=== PATIENT | male | born 1980 | race Two or more races ===

== ENCOUNTER 2025-06-08 18:56 | Emergency (ER) | payer OTHER ==
[~2025-06-08] VITALS: Ht 172.7 cm; Wt 113.4 kg
[~2025-06-08 18:56] MED LIST: METF-440 PO
[2025-06-08 19:00] VITALS: O2SAT 98
[2025-06-08] MEDS: MORPHINE SULFATE 4 MG/1 ML DISP.SYRIN IV ONE (20:20)
[2025-06-08] MEDS: IV NORMAL SALINE 1000 ML BAG IV ONE (20:20)
== END 2025-06-08 19:25 | disposition left against medical advice (07) ==
LOC: ER 19:00
DX: R10.9 Unspecified abdominal pain (principal); R07.89 Other chest pain; R19.7 Diarrhea, unspecified; E11.9 Type 2 diabetes mellitus without complications; E66.9 Obesity, unspecified; F17.210 Nicotine dependence, cigarettes, uncomplicated; F19.10 Other psychoactive substance abuse, uncomplicated; Z59.00 Homelessness unspecified; Z76.0 Encounter for issue of repeat prescription; Z79.4 Long term (current) use of insulin; Z79.84 Long term (current) use of oral hypoglycemic drugs; Z91.148 Patient's other noncompliance with medication regimen for other reason; Z68.38 Body mass index [BMI] 38.0-38.9, adult
CPT/HCPCS: A4606; A4663